=== PATIENT | female | born 1950 | race Caucasian/White ===

== ENCOUNTER → 2016-06-05 | Outpatient (CLI) | payer MEDICARE, OTHER ==
[~2016-06-05] MED LIST: ASPI-1093 PO; ERGO500050 PO; LISI-661 PO; METO50 PO; SIMV-260 PO; TIOT185 IH; TRAM50TA4 PO
== END | disposition home or self-care (01) ==
LOC: RADPV 10:40
PROVIDERS: ATTEND Orthopaedic Surgery
DX: M25.461 Effusion, right knee (principal); Z96.651 Presence of right artificial knee joint

== ENCOUNTER 2018-11-27 06:36 | Day surgery (SDC) | payer MEDICARE, OTHER ==
[~2018-11-27] VITALS: Ht 160 cm; Wt 125.3 kg
[~2018-11-27 06:36] MED LIST changes: -ASPI-1093 PO; +ASPI-1182 PO; +SODIUM CHLORIDE 0.9% 1,000 ML IV ONE
[2018-11-27] MEDS ORDERED: BACL10TA PO (07:00)
[2018-11-27] MEDS ORDERED: SENN-176 PO (07:00)
[2018-11-27] MEDS ORDERED: GABA-531 PO (07:00)
[2018-11-27] MEDS ORDERED: SUCR1TAB PO (07:00)
[2018-11-27] MEDS ORDERED: MONT10TA21 PO (07:00)
[2018-11-27] MEDS ORDERED: PRED10 PO (07:00)
[2018-11-27] MEDS ORDERED: LINA290C PO (07:00)
[2018-11-27] MEDS ORDERED: PRAV40TA4 PO (07:00)
[2018-11-27] MEDS ORDERED: FentaNYL CITRATE-PF 100 MCG/2 ML VIAL ONE (07:46)
[2018-11-27] MEDS ORDERED: MIDAZOLAM HCL 2 MG/2 ML VIAL ONE (07:46)
[2018-11-27] MEDS ORDERED: MethylPREDNISolone SOD SUCC 125 MG/2 ML VIAL IVP ONE (08:30)
[2018-11-27] MEDS ORDERED: MethylPREDNISolone SOD SUCC 125 MG/2 ML VIAL ONE (08:38)
[2018-11-27] MEDS ORDERED: ALBUTEROL SULFATE 2.5 MG/0.5 ML NEB SOLUTION NEB ONE (12:00)
[2018-11-27] MEDS ORDERED: LIDOCAINE 4% 50 ML SOLUTION TP ONE (12:00)
[2018-11-27] MEDS ORDERED: LIDOCAINE 2% 5 ML JELLY TP ONE (12:00)
[2018-11-27] MEDS ORDERED: BENZOCAINE 20% 50 MCG/SPRAY 57 GM TP ONE (12:00)
[2018-11-27] MEDS ORDERED: OXYGEN THERAPY IH SCH (20:00)
== END 2018-11-27 10:05 | disposition home or self-care (01) ==
LOC: SURGERY 06:36
PROVIDERS: ATTEND Internal Medicine Critical Care Medicine
DX: J38.4 Edema of larynx (principal); B37.0 Candidal stomatitis; J45.909 Unspecified asthma, uncomplicated; J98.8 Other specified respiratory disorders; I10 Essential (primary) hypertension; F17.210 Nicotine dependence, cigarettes, uncomplicated; Z86.11 Personal history of tuberculosis; Z72.89 Other problems related to lifestyle; Z90.49 Acquired absence of other specified parts of digestive tract; Z96.659 Presence of unspecified artificial knee joint; Z98.890 Other specified postprocedural states
CPT/HCPCS: 31623; 31624; 71045; 87015; 87070; 87101; 87205; 87206; 87220; 88108; 88312; J2250; J2930; J3010; J7030

== ENCOUNTER 2023-10-27 19:35 | Emergency (ER) | payer MEDICARE, MEDICAID ==
[~2023-10-27] VITALS: Ht 165.1 cm; Wt 127.3 kg
[~2023-10-27 19:35] MED LIST changes: +AMOX-457 PO; -ASPI-1182 PO; +ASPI-1444 PO; +BACL10TA PO; -ERGO500050 PO; +GABA-1181 PO; +LINA290C PO; -LISI-661 PO; +MONT-35 PO; +PRAV40TA4 PO; +PRED-729 PO; +SENN-277 PO; -SIMV-260 PO; -SODIUM CHLORIDE 0.9% 1,000 ML IV ONE; +SUCR1TAB2 PO; -TRAM50TA4 PO
[2023-10-27 20:26] LABS: BASOPHILS % (AUTO) 0.7 % (0.0-2.0); EOSINOPHILS % (AUTO) 1.7 % (1.0-6.0); HEMATOCRIT 36.2 % (36-46); HEMOGLOBIN 12.2 g/dL (12.0-16.0); LYMPHOCYTES # (AUTO) 2.3 K/uL (1.0-4.8); LYMPHOCYTES % (AUTO) 25.2 % (22.0-44.0); MEAN CORPUSCULAR HGB CONC 33.8 G/dL (31.0-37.0); MEAN CORPUSCULAR VOLUME 92 fL (80-100); MONOCYTES # (AUTO) 0.7 K/uL (0.1-1.0); MONOCYTES % (AUTO) 7.2 % (2.0-9.0); NEUTROPHILS % (AUTO) 65.2 % (40.0-70.0); PLATELET COUNT (AUTO) 221 K/uL (150-450); RED BLOOD CELL COUNT(AUTO) 3.93 MIL/uL (4.00-5.20); RED CELL DISTRIBUTION WIDTH 15.7 % (11.5-14.5); WHITE BLOOD COUNT (AUTO) 9.1 K/uL (4.5-11.0)
[2023-10-27 20:36] LABS: CALCIUM, TOTAL 9.1 mg/dL (8.8-10.5); CREATININE 0.93 mg/dL (0.60-1.30); POTASSIUM 3.4 mmol/L (3.5-5.1)
[2023-10-27 20:46] VITALS: TEMP 98.8
[2023-10-27] MEDS ORDERED: TRAM50TA5 PO (22:39)
[2023-10-27] MEDS ORDERED: CELE100 PO (22:39)
[2023-10-27] MEDS: KETOROLAC TROMETHAMINE 30 MG/ML VIAL IM ONE (23:51)
[2023-10-27 23:52] VITALS: BP 129/66; PULSE 81; RESP 16
[2023-10-27] MEDS: HYDROCODONE/ACETAMINOPHEN 5-325 MG TABLET PO ONE (23:52)
== END 2023-10-28 00:08 | disposition home or self-care (01) ==
LOC: EMS 19:37
DX: M25.561 Pain in right knee (principal); F41.9 Anxiety disorder, unspecified; I10 Essential (primary) hypertension; F17.210 Nicotine dependence, cigarettes, uncomplicated
CPT/HCPCS: 99284; 80048; 85025; 36415; 73562; 96372; J1885